=== PATIENT | female | born 1965 | race Caucasian/White ===

== ENCOUNTER 2024-04-07 19:30 | Inpatient (IN) ==
[2024-04-07] MEDS ORDERED: Patient's ALLERGY Info needs ENTERED STA (23:15)
[2024-04-08] MEDS ORDERED: LORazepam 2 MG/1 ML VIAL IV PRN (01:04)
[2024-04-08] MEDS ORDERED: oxyCODONE HCL IR 5 MG TAB (IMMEDIATE RELEASE) PO PRN (01:05)
[2024-04-08] MEDS ORDERED: ACETAMINOPHEN 500 MG TAB PO PRN (01:05)
[2024-04-08] MEDS ORDERED: PROMETHAZINE 6.25 MG/50.25 ML BAG IV PRN (01:05)
--- NOTE | 2024-04-08 02:04 | History & Physical Report ---
Date of Service April 08, 2024 Assessment & Plan (1) Ambulatory dysfunction: Plan: Possibly from peripheral neuropathy from alcohol abuse hx VT COPD, patient with usual SOB symptoms seizure disorder, well-controlled on Keppra after initial event last year Alcoholic hepatitis Thrombocytopenia possibly from liver disease ongoing tobacco abuse OBS Medical telemetry given potential for alcohol withdrawal BRYAN S at risk protocol, DT precautions [facility] [place] consult Re: Worsening bilateral leg weakness PT OT eval Nicotine patch as needed DVT prophylaxis. SCDs Re: Thrombocytopenia Full code Patient's son requesting updates providers. Mr. Messi Huynh, contact #[phone]. ADDENDUM: Unassigned patient insurance later found to be [facility] [employer]. Patient may incur more expense if seen by [facility] providers during confinement as per discussion with case management. Will transfer service to [facility] Hospitalist service. Patient case signed out to Dr. Pineda. History of Present Illness Chief Complaint: Worsening bilateral leg weakness, tremors Primary Care Provider: Deepak Cuenca PA-C History obtained from patient, family, and records. Medical history significant for VT, COPD, seizure disorder, mood disorder, chronic back pain, ongoing tobacco/alcohol abuse. Patient has had bilateral hand tremors and leg weakness for couple of years now. Patient noted worsening symptoms the last 3 weeks. No headache, no chest pain, no unusual back pain, no abdominal pain, no incontinence symptoms. No fever, no chills. Patient falling more than usual at home. Some SOB without new cough symptoms. Outpatient [facility] [place]rology appointment scheduled for next month. Patient had a misunderstanding with [facility] neurologist who will not take her back as per patient account. Patient seen at [facility] ER yesterday. Patient transferred to [facility] as per patient request for neurology services. Medical History as above Surgical History : Foot surgery, knee surgery, wrist surgery, D&C, trigger finger surgery, BTL Family History : DM, seizure disorder, TIA Personal/Social history : 6 cigarettes daily, alcohol binging once a month as per patient, disabled Allergies Allergy/AdvReac Type Severity Reaction Status Date / Time hydromorphone [From Dilaudid] Allergy SHORTNESS Verified 04/08/24 01:59 OF BREATH hydrochlorothiazide AdvReac ACUTE Verified 04/08/24 01:59 RENAL FAILURE lisinopril AdvReac ACUTE Verified 04/08/24 01:59 RENAL FAILURE Home Medications Medication Instructions Recorded Confirmed Type acetaminophen 500 mg tablet 1,000 mg PO BID PRN DIRECTED 04/08/24 04/08/24 History (Tylenol Extra Strength) albuterol sulfate 90 mcg/actuation 1 puff inhalation Q6 PRN Shortness 04/08/24 04/08/24 History aerosol inhaler Of Breath Or Wheezing baclofen 15 mg tablet 15 mg PO UD PRN NON SPECIFIED 04/08/24 04/08/24 History bisoprolol fumarate 5 mg tablet 5 mg PO DAILY 04/08/24 04/08/24 History buspirone 5 mg tablet 5 mg PO BID PRN Anxiety 04/08/24 04/08/24 History cetirizine 10 mg tablet 10 mg PO DAILY 04/08/24 04/08/24 History duloxetine 30 mg capsule,delayed 30 mg PO DAILY 04/08/24 04/08/24 History release (Cymbalta) fluticasone 500 mcg-salmeterol 50 1 inh inhalation BID 04/08/24 04/08/24 History mcg/dose blistr powdr for inhalation (Advair Diskus) fluticasone propionate 50 2 spray intranasal DAILY 04/08/24 04/08/24 History mcg/actuation nasal spray,suspension levetiracetam 500 mg tablet 500 mg PO BID 04/08/24 04/08/24 History (Keppra) meloxicam 15 mg tablet 15 mg PO UD PRN NON SPECIFIED 04/08/24 04/08/24 History multivitamin 1 tab PO DAILY 04/08/24 04/08/24 History omeprazole 20 mg tablet,delayed 20 mg PO DAILY 04/08/24 04/08/24 History release potassium chloride 10 mEq 10 meq PO DAILY 04/08/24 04/08/24 History capsule,extended release trazodone 100 mg tablet 100 mg PO HS 04/08/24 04/08/24 History Past Med/Surg History Problem List (Updated 04/08/24 @ 02:21 by Dilan Sierra MD) Ambulatory dysfunction Social History Smoking Status: Current every day smoker Tobacco Type: Cigarettes Second Hand Exposure: No; Do You Dip or Chew Tobacco: No; Hx Alcohol Use: Yes (drinks 6 shots of vodka/day) Hx Substance Use: No Preferred Language: Senegalese 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 Beliefs That Will Affect Care: None Current Living Situation: Family Current Living Situation Comment: lives with son Other Information That Helps Us Care for You: No Feels Safe at Home: Yes Safety Concerns: Feels Safe At This Time Assistive Devices: Cane, Walker and Wheelchair Review of Systems Review of Systems: As per HPI, all other systems reviewed and negative Physical Exam Physical Exam: GENERAL: Comfortable, pleasant, obese, tremulous, no respiratory distress SKIN: Normal color, warm HEENT: Bespectacled, [place] palpebral conjunctivae, no ptosis, dry buccal mucosa NECK : Supple, no tenderness CHEST : CTA, no tenderness HEART : RRR, no obvious murmurs ABDOMEN: Some distention, nontender EXTREMITIES : No LE swelling/tenderness, no other conspicuous deformities noted NEUROLOGIC : Coherent, no facial asymmetry, tremulous, MMTS BUE 4/5, BLE 3/5, gait and stance not assessed Results & Data Results & Data Vital Signs (Past 12 Hours) Vital Signs Temp Pulse Resp BP Pulse Ox O2 Del Method 36.6 C 96 H 20 130/79 95 Room Air 04/08/24 01:12 04/08/24 01:12 04/08/24 01:12 04/08/24 01:12 04/08/24 01:12 04/08/24 01:[address] [facility] (04/07/24) Hemoglobin 13.7, hematocrit 39.5, WBC 5.77, platelets 116 Serum sodium 134, potassium 3.9, chloride 100, CO2 24, BUN 14, creatinine 0.9, glucose 107, magnesium 1.5, AST 306, ALT 97, alk phos 304, troponin within normal limits MRI brain with and without contrast: No acute or suspicious intracranial abnormality. Ultrasound gallbladder : cholelithiasis, fatty liver
[2024-04-08 02:36] LABS: Hematocrit (blood only) 36.6 % (37.0-47.0); Hemoglobin 12.4 g/dl (12.0-16.0); Mean Corpuscular Hemoglobin 37.3 pg (25.0-34.0); Mean Corpuscular Hgb Conc 33.9 g/dL (32.0-36.0); Mean Corpuscular Volume 110.2 fL (80.0-100.0); Mean Platelet Volume 11.1 fL (9.4-12.4); Platelet Count 93 K/uL (130-400); RDW Coefficient of Variation 15.3 % (11.5-14.5); RDW Standard Deviation 61.6 fL (36.4-46.3); Red Blood Count 3.32 M/uL (4.20-5.40); White Blood Count 5.57 K/ul (4.8-10.8)
[2024-04-08 02:42] LABS: Albumin Globulin Ratio 1.2 (0.9-2); Albumin Level 3.1 gm/dl (3.4-5.0); BUN Creatinine Ratio 18.5 (10-20); Calcium 8.9 mg/dl (8.6-10.3); Creatinine Clr Calc Pharmacy 76.5 ml/min; Globulin 2.6 gm/dl (2.5-4.0); Magnesium 1.9 mg/dl (1.7-2.4); Total Protein 5.7 gm/dl (6.0-8.3)
[2024-04-08 02:45] LABS: Basophils # (auto) 0.03 K/uL (0.00-0.20); Basophils % (auto) 0.5 %; Eosinophils # (auto) 0.04 K/uL (0.00-0.50); Eosinophils % (auto) 0.7 %; Immature Granulocytes # (auto) 0.09 K/uL (0.01-0.20); Immature Granulocytes % (auto) 1.6 %; Lymphocytes # (auto) 0.66 K/uL (1.20-3.40); Lymphocytes % (auto) 11.8 %; Macrocytosis Present; Monocytes # (auto) 0.79 K/uL (0.11-0.59); Monocytes % (auto) 14.2 %; Neutrophils # (auto) 3.96 K/uL (1.40-6.50); Neutrophils % (auto) 71.2 %
[2024-04-08 02:51] LABS: INR 1.1 (0.9-1.1); Prothrombin Time 11.7 Seconds (9.0-12.0)
[2024-04-08 02:56] LABS: Thyroid Stimulating Hormone 9.586 uIu/ml (0.300-4.500)
[2024-04-08] MEDS: NICOTINE 7 MG/24 HR TDSY TD SCH (03:20)
[2024-04-08] MEDS: SODIUM CHLORIDE 0.9% 1,000 ML IV ONE ×3 (03:24→17:55)
[2024-04-08 03:32] LABS: T4 Free Thyroxine 1.42 ng/dl (0.61-1.60)
[2024-04-08] MEDS: Patient's HEIGHT &/or WEIGHT Needed STA (03:33)
[2024-04-08] MEDS: LEVOTHYROXINE SODIUM 25 MCG TABLET PO SCH (05:50)
--- NOTE | 2024-04-08 07:56 | Neurology Consultation ---
Date of Consultation April 08, 2024 Assessment & Plan (1) Lower extremity weakness: History of Present Illness Attending Physician: Naveed Craig MD History of Present Illness today: pt this morning NAD. pt states she feels weak in her legs more proximally for now few months and has done physical therapy for past 6 months. pt [facility] neurology and has had EMG of both upper and lower limbs (no reports available in chart) and told it was unremarkable. pt feels mainly weak when trying to get up from chair. pt denies muscle pain or urine color change. pt does have hx of chronic alcohol abuse and binge drinking. chart reviewed. [facility], reported to be normal. admission HPI : Worsening bilateral leg weakness, tremors Primary Care Provider: Deepak Cuenca PA-C History obtained from patient, family, and records. Medical history significant for VT, COPD, seizure disorder, mood disorder, chronic back pain, ongoing tobacco/alcohol abuse. Patient has had bilateral hand tremors and leg weakness for couple of years now. Patient noted worsening symptoms the last 3 weeks. No headache, no chest pain, no unusual back pain, no abdominal pain, no incontinence symptoms. No fever, no chills. Patient falling more than usual at home. Some SOB without new cough symptoms. Outpatient [facility] Neurology appointment scheduled for next month. Patient had a misunderstanding with [facility] neurologist who will not take her back as per patient account. Patient seen at [facility] ER yesterday. Patient transferred to [facility] as per patient request for neurology services. Medical History as above Surgical History : Foot surgery, knee surgery, wrist surgery, D&C, trigger finger surgery, BTL Family History : DM, seizure disorder, TIA Personal/Social history : 6 cigarettes daily, alcohol binging once a month as per patient, disabled Allergies Allergy/AdvReac Type Severity Reaction Status Date / Time hydromorphone [From Dilaudid] Allergy SHORTNESS Verified 04/08/24 01:59 OF BREATH hydrochlorothiazide AdvReac ACUTE Verified 04/08/24 01:59 RENAL FAILURE lisinopril AdvReac ACUTE Verified 04/08/24 01:59 RENAL FAILURE Home Medications Medication Instructions Recorded Confirmed Type acetaminophen 500 mg tablet 1,000 mg PO BID PRN DIRECTED 04/08/24 04/08/24 History (Tylenol Extra Strength) albuterol sulfate 90 mcg/actuation 1 puff inhalation Q6 PRN Shortness 04/08/24 04/08/24 History aerosol inhaler Of Breath Or Wheezing baclofen 15 mg tablet 15 mg PO UD PRN NON SPECIFIED 04/08/24 04/08/24 History bisoprolol fumarate 5 mg tablet 5 mg PO DAILY 04/08/24 04/08/24 History buspirone 5 mg tablet 5 mg PO BID PRN Anxiety 04/08/24 04/08/24 History cetirizine 10 mg tablet 10 mg PO DAILY 04/08/24 04/08/24 History duloxetine 30 mg capsule,delayed 30 mg PO DAILY 04/08/24 04/08/24 History release (Cymbalta) fluticasone 500 mcg-salmeterol 50 1 inh inhalation BID 04/08/24 04/08/24 History mcg/dose blistr powdr for inhalation (Advair Diskus) fluticasone propionate 50 2 spray intranasal DAILY 04/08/24 04/08/24 History mcg/actuation nasal spray,suspension levetiracetam 500 mg tablet 500 mg PO BID 04/08/24 04/08/24 History (Keppra) meloxicam 15 mg tablet 15 mg PO UD PRN NON SPECIFIED 04/08/24 04/08/24 History multivitamin 1 tab PO DAILY 04/08/24 04/08/24 History omeprazole 20 mg tablet,delayed 20 mg PO DAILY 04/08/24 04/08/24 History release potassium chloride 10 mEq 10 meq PO DAILY 04/08/24 04/08/24 History capsule,extended release trazodone 100 mg tablet 100 mg PO HS 04/08/24 04/08/24 History Patient History Social History Smoking Status: Current every day smoker Tobacco Type: Cigarettes Second Hand Exposure: No; Do You Dip or Chew Tobacco: No; Hx Alcohol Use: Yes (drinks 6 shots of vodka/day) Hx Substance Use: No Preferred Language: Armenian 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 Beliefs That Will Affect Care: None Current Living Situation: Family Current Living Situation Comment: lives with son Other Information That Helps Us Care for You: No Feels Safe at Home: Yes Safety Concerns: Feels Safe At This Time Assistive Devices: Cane, Walker and Wheelchair Exam (Neuro) Physical Exam: HEENT: normocephalic grossly Neuro: Mental: AOx4, fluent speech, normal comprehension, no apraxia, no L/R confusion, no neglect CN: PERRL, Full EOM, symmetric face, midline T/U/P, grossly full ROM neck Motor: occasional b/l hand tremors with posture and at times at rest, normal tone, 5/5 t/o bilaterally upper and 5-/5 b/l lower ext hip flexion and knee extension, 5/5 distal dorsiflexion/plantar flexion b/l. Sens: intact to touch b/l grossly Coord: intact FNT b/l DTR: 2+ sym b/l Gait:deferred. Impression: 59 yo female with chronic subjective b/l lower ext with subtle proximal weakness in setting of chronic alcohol abuse. 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 Other vitamin/nutritional deficiency may also contribute. Recommendations: pt has apparently pending appt with neurology as outpt next month, keep the appt and can do the further work up as outpt. try to get records from [facility] and [facility] for prior EMG and other work up labs (as outpt). physical therapy consult for strength training and gait evaluation. need to stop drinking. consider checking thiamine, vitamin B6, zinc and iron levels (again, this can be done as outpt work up). there is no acute work up needed as inpt from neurology stand point. call again if new question. Follow up as above. Chart reviewed I have spent more than 50% educating patient about potential diagnosis and neurological evaluation and coordinating care with patient's treatment team. Total time spent (including chart review and coordination of care): 60 min (this includes chart review). Results & Data Vital Signs (Past 12 Hours) Vital Signs Temp Pulse Resp BP BP Pulse Ox O2 Del Method 04/08/24 07:37 36.8 C 86 18 95/67 L 93 Room Air 04/08/24 04:21 78 92/57 L 95 Room Air 04/08/24 04:17 36.7 C 81 16 91/60 L 93 Room Air 11/01/24 01:58 Room Air 04/08/24 01:12 36.6 C 96 H 20 130/79 95 Room Air PG Care Time/CCT Total # of Minutes Spent Total Time Spent with Patient: Total time spent is greater than 50% in coordination of care (as documented) at patient's floor/unit and/or counseling patient: Coding Level of Care Code 71600 IN/OBS CONSULT LVL 4,60M Diagnoses Weakness of both lower extremities R29.898 Laterality: bilateral (1) Lower extremity weakness Laterality: bilateral Qualified Code(s): R29.898 - Other symptoms and signs involving the musculoskeletal system
--- NOTE | 2024-04-08 08:46 | XRay Report ---
XR chest 1V portable HISTORY: 59 years-old Female sob acute shortness of breath COMPARISON: None TECHNIQUE: AP view of the chest FINDINGS: Cardiomediastinal and hilar silhouettes are within normal limits. No pneumothorax or pleural effusion . Ill-defined subsegmental lateral left lung base opacities. Bones appear grossly intact. IMPRESSION: Subsegmental lateral left lung base opacities may be secondary to atelectasis versus deve loping pneumonia. ACT 112: Negative or not required by law. The above report was generated using voice recognition software. It may contain grammatical, syntax o r spelling errors. Electronically signed by: Deo Godoy M.D. 04/08/2024 8:08 AM
[2024-04-08] MEDS: CETIRIZINE HCL 10 MG TABLET PO SCH (08:51)
[2024-04-08] MEDS: BISOPROLOL FUMARATE 5 MG TAB PO SCH (08:51)
[2024-04-08] MEDS: THIAMINE HCL 100 MG TAB PO SCH (08:53)
[2024-04-08] MEDS: FOLIC ACID 1 MG TAB PO SCH (08:53)
[2024-04-08] MEDS: PANTOprazole 40 MG TAB PO SCH (08:53)
[2024-04-08] MEDS: MULTIVITAMIN TAB PO SCH (08:53)
[2024-04-08] MEDS: FLUTICASONE PROPIONATE NA SPR 16 GM BTL SCH (08:53)
[2024-04-08] MEDS: FLUTICASONE/VILANTEROL 200/25MCG 14 PUFFS/INHALER INH SCH (08:53)
[2024-04-08] MEDS: DULoxetine HCL 30 MG CAP PO SCH (08:53)
[2024-04-08] MEDS: SODIUM CHLORIDE 0.9% 1,000 ML IV SCH (08:54)
[2024-04-08] MEDS ORDERED: MULTIVITAMIN TAB PO SCH (09:00)
[2024-04-08] MEDS: levETIRAcetam 500 MG TAB PO SCH (10:18)
--- NOTE | 2024-04-08 14:44 | Hospitalist Progress Note ---
Date of Service April 08, 2024 Assessment & Plan (1) Ambulatory dysfunction: (2) Hyponatremia: (3) Thrombocytopenia: (4) Transaminitis: (5) Alcoholic hepatitis: (6) COPD (chronic obstructive pulmonary disease): (7) Seizure disorder: Plan Ambulatory dysfunction - BL LE weakness with tremors throughout body worst in hands - Neurology consulted: No concern for infarct, likely alcohol related with essential tremor - OT/PT consulted Hyponatremia - Na: 132 - Urine sodium, Urine osmolality and serum osmolality ordered - NS x2 L given, will continue to supplement - CMP QAM Thrombocytopenia -Platelet count: 93 -CBC/CMP QAM Transaminitis/Alcoholic hepatitis - ALT: 64, AST: 184 (04/08) - Trend LFTS/Bilirubin - AWSS protocol - Liver u/s ordered - CBC/CMP QAM COPD - No respiratory symptoms - Continue home Advair Diskus and albuterol PRN Seizure disorder - Continue Keppra 500 mg BID Admission and Anticipated Discharge Date Admission Date: April 08, 2024 Supervising Physician Co-Signing Physician Notes Attending attestation Pt seen and examined in concert with Dr. Trejo. In agreement with the documented findings as noted in the resident documentation with any exceptions or additions as noted here. Reported one episode of mild lightheadedness while walking from the bathroom this AM but has not repeated since with subsequent short trips. Son in room with patient (Al). Clarification of course of illness - progressive ambulatory/functional decline for ~2 years following COVID pandemic and recurrent infections (last ~1 yr ago), though more so in the last 2-4 weeks without apparent triggering etiology/illness. Son reports he had to help patient off toilet, off couch (stuck for 3 hrs) and similar, which he has never had to do. On review of alcohol use history, son and patient corroborated that the patient consumes approximately 2 x 1.7L bottles of vodka per week and has, steadily, for some time. She has not had a recent day without drinking. She has not tried to cut back. She is interested in rehabilitation services but not committed to them. On examination, S1/S2 nl RRR no MCG. CTAB. Abd NT/ND BS+ve. Mild bilateral resting tremor of the hands. Ambulatory dysfunction/deconditioning - PT/OT consult, neurology evaluation and s/o - PT/OT recommend acute rehab services which patient is agreeable to today. Neurology does not find ulterior underlying cause of weakness/tremor. Alcohol use disorder with concern for alcohol withdrawal - start AWSS protocol with lorazepam for symtomatic management and consider additional interventions if required. Case management for cessation resources. Transaminitis with hyperbilirubinemia in the setting of AUD - RUQ US, trend AST, ALT, bilirubin daily Hyponatremia with hypoproteinemia - likely 2/2 AUD - trend sodium daily and monitor for changes. Encourage PO intake. Borderline low BP - add hold parameters for bisoprolol, continue IV fluids and monitor BP. Else see resident documentation as noted. Subjective Bandar Huynh is a 59 y/o F with a past medical history of COPD, Seizure disorder on Keppra, alcoholic hepatitis, and thrombocytopenia admitted to [facility] due to bilateral LE weakness and ongoing tremors. Patient notes that she has had these symptoms for the past 3 years, but in the past 3 weeks, symptoms have worsened. Patient does endorse drinking 1.75 L of vodka every 3-4 days. Today patient denies chest pain, palpitations, SOB, cough, wheeze, nausea, vomiting, abdominal pain, fevers or chills. Patient does endorse ongoing dizziness, tremors and bilateral LE weakness worsened when changing position from supine to seated or when standing up. Physical Exam Physical Exam: General: patient resting comfortably, NAD, non-toxic in appearance, answers questions appropriately. Skin: warm, dry, intact HEENT: NC/AT, anicteric sclera, conjunctiva without injection, moist mucus membranes. Heart: +S1/S2, regular, no m/r/g Lungs: equal air entry bilaterally, no rales/rhonchi/wheezes Abd: +BS, soft, NT/ND Ext: warm, no clubbing/cyanosis or edema, Jos's neg. Neuro: nonfocal, speech intact, no facial droop, moving all extremities. Results & Data Results & Data Vital Signs (Past 12 Hours) Vital Signs Temp Pulse Pulse Resp BP BP Pulse Ox 04/08/24 11:25 36.5 C 79 18 104/73 93 04/08/24 08:00 92 H 04/08/24 08:00 04/08/24 07:37 36.8 C 86 18 95/67 L 93 04/08/24 04:21 78 92/57 L 95 04/08/24 04:17 36.7 C 81 16 91/60 L 93 O2 Del Method 04/08/24 11:25 Room Air 04/08/24 08:00 04/08/24 08:00 Room Air 04/08/24 07:37 Room Air 04/08/24 04:21 Room Air 04/08/24 04:17 Room Air
[2024-04-08] MEDS ORDERED: Ativan IV Alcohol Withdrawal--Active Protocol IV PRN (15:18)
[2024-04-08] MEDS ORDERED: LORazepam 2 MG/1 ML VIAL--Active Protocol IV PRN ×3 (16:15)
[2024-04-08] MEDS ORDERED: MICONAZOLE NITRATE POWDER 85 GM EXT PRN (18:04)
[2024-04-08] MEDS: traZODone HCL 100 MG TAB PO SCH (22:01)
[2024-04-09 06:03] LABS: Hemoglobin 11.7 g/dl (12.0-16.0); Mean Corpuscular Hemoglobin 38.1 pg (25.0-34.0); Mean Corpuscular Hgb Conc 34.4 g/dL (32.0-36.0); Mean Corpuscular Volume 110.7 fL (80.0-100.0); Mean Platelet Volume 10.7 fL (9.4-12.4); Platelet Count 99 K/uL (130-400); RDW Coefficient of Variation 15.5 % (11.5-14.5); RDW Standard Deviation 62.4 fL (36.4-46.3); Red Blood Count 3.07 M/uL (4.20-5.40); White Blood Count 4.98 K/ul (4.8-10.8)
[2024-04-09 06:27] LABS: Albumin Globulin Ratio 1.1 (0.9-2); Albumin Level 2.8 gm/dl (3.4-5.0); BUN Creatinine Ratio 16.4 (10-20); Bilirubin,Total 1.6 mg/dl (0.2-1.0); Calcium 8.2 mg/dl (8.6-10.3); Creatinine Clr Calc Pharmacy 115.5 ml/min; Globulin 2.5 gm/dl (2.5-4.0); Potassium 3.7 mmol/L (3.5-5.1); Total Protein 5.3 gm/dl (6.0-8.3)
--- NOTE | 2024-04-09 15:34 | Hospitalist Progress Note ---
Date of Service April 09, 2024 Assessment & Plan (1) Ambulatory dysfunction: (2) Hyponatremia: (3) Thrombocytopenia: (4) Transaminitis: (5) Alcoholic hepatitis: (6) COPD (chronic obstructive pulmonary disease): (7) Seizure disorder: Plan Ambulatory dysfunction - BL LE weakness with tremors throughout body worst in hands - Neurology consulted: No concern for infarct, likely alcohol related with essential tremor - OT/PT consulted - inpatient rehab recommended, waiting for placement Hyponatremia - Na: 132 - Urine sodium, Urine osmolality and serum osmolality ordered - NS x2 L given, will continue to supplement - CMP QAM Thrombocytopenia -Platelet count: 93 -CBC/CMP QAM Transaminitis/Alcoholic hepatitis - ALT: 64, AST: 184 (04/08) - Trend LFTS/Bilirubin - [facility] protocol - Liver u/s ordered - CBC/CMP QAM COPD - No respiratory symptoms - Continue home Advair Diskus and albuterol PRN Seizure disorder - Continue Keppra 500 mg BID Admission and Anticipated Discharge Date Admission Date: April 08, 2024 Supervising Physician Co-Signing Physician Notes Attending attestation Pt seen and examined in concert with Dr. Trejo. In agreement with the documented findings as noted in the resident documentation with any exceptions or additions as noted here. Resting comfortably in bed without recurrence of lightheadedness with mild activity in room. Son at bedside. Both are understanding that inpatient rehab services are recommended and the patient is hesitantly accepting. On examination, S1/S2 nl RRR no MCG. CTAB. Abd NT/ND BS+ve. Mild bilateral resting tremor of the hands. Ambulatory dysfunction/deconditioning - PT/OT consult, neurology evaluation and s/o - PT/OT recommend acute rehab services. Neurology does not find ulterior underlying cause of weakness/tremor. CM aware. Alcohol use disorder with concern for alcohol withdrawal - continue AWSS protocol with lorazepam for symptomatic management, though no needs currently. Transaminitis with hyperbilirubinemia in the setting of AUD - RUQ US from 04/07 with hepatosteatosis, trend AST, ALT, bilirubin daily Hyponatremia - resolved Borderline low BP - encourage oral hydration. Monitor BP. Consider hold bisoprolol if decreased BP. Else see resident documentation as noted. Subjective Patient resting comfortably in bedside accompanied by son/caregiver who was able to stay the night. Patient endorses that her weakness and tremors have improved, and she is no longer dizzy when ambulating. Inpatient rehabilitation was discussed with patient and she is amenable to starting once a bed is available. No fevers, chills, abdominal pain, nausea, vomiting, chest pain, palpitations, pressures, or incontinence. Physical Exam Physical Exam: General: patient resting comfortably, NAD, non-toxic in appearance, answers questions appropriately. Skin: warm, dry, intact HEENT: NC/AT, anicteric sclera, conjunctiva without injection, moist mucus membranes. Heart: +S1/S2, regular, no m/r/g Lungs: equal air entry bilaterally, no rales/rhonchi/wheezes Abd: +BS, soft, NT/ND Ext: warm, no clubbing/cyanosis or edema, Jos's neg. Neuro: nonfocal, speech intact, no facial droop, moving all extremities. Results & Data Results & Data Vital Signs (Past 12 Hours) Vital Signs Temp Pulse Pulse Resp BP Pulse Ox O2 Del Method 04/09/24 15:14 36.7 C 69 20 101/59 L 91 Room Air 04/09/24 14:14 64 04/09/24 11:44 36.6 C 79 20 105/65 94 Room Air 04/09/24 07:59 36.7 C 80 20 107/69 93 Room Air 04/09/24 07:35 Room Air 04/09/24 06:51 70
[2024-04-10] MEDS: busPIRone 5 MG TAB PO PRN (08:44)
--- NOTE | 2024-04-10 11:16 | Hospitalist Progress Note ---
Date of Service April 10, 2024 Assessment & Plan (1) Ambulatory dysfunction: (2) Hyponatremia: (3) Thrombocytopenia: (4) Transaminitis: (5) Alcoholic hepatitis: (6) COPD (chronic obstructive pulmonary disease): (7) Seizure disorder: Plan Ambulatory dysfunction - BL LE weakness with tremors throughout body worst in hands - Neurology consulted: No concern for infarct, likely alcohol related with essential tremor - OT/PT consulted - inpatient rehab recommended, waiting for placement Hyponatremia - Na: 132 - Urine sodium, Urine osmolality and serum osmolality ordered - NS x2 L given, will continue to supplement - CMP QAM Thrombocytopenia -Platelet count: 93 -CBC/CMP QAM Transaminitis/Alcoholic hepatitis - ALT: 64, AST: 184 (04/08) - Trend LFTS/Bilirubin - AWSS protocol - Liver u/s ordered - CBC/CMP QAM COPD - No respiratory symptoms - Continue home Advair Diskus and albuterol PRN - added incentive spirometer Seizure disorder - Continue Keppra 500 mg BID Admission and Anticipated Discharge Date Admission Date: April 08, 2024 Supervising Physician Co-Signing Physician Notes Attending attestation Pt seen and examined in concert with Dr. Trejo. In agreement with the documented findings as noted in the resident documentation with any exceptions or additions as noted here. Resting comfortably in bed without recurrence of lightheadedness with mild activity in room. Son at bedside. Ambulating to restroom without issue. Both parties are still open to inpatient PT services. On examination, S1/S2 nl RRR no MCG. CTAB. Abd NT/ND BS+ve. Mild bilateral resting tremor of the hands. Ambulatory dysfunction/deconditioning - PT/OT consult, neurology evaluation and s/o - PT/OT recommend acute rehab services. Neurology does not find ulterior underlying cause of weakness/tremor. CM aware. Alcohol use disorder with concern for alcohol withdrawal - continue AWSS protocol with lorazepam for symptomatic management, though no needs currently. Transaminitis with hyperbilirubinemia in the setting of AUD - RUQ US from 04/07 with hepatosteatosis Hyponatremia - resolved Borderline low BP - encourage oral hydration. Monitor BP. Consider hold bisoprolol if decreased BP. Else see resident documentation as noted. Subjective Patient resting comfortably in bedside accompanied by son/caregiver who was able to stay the night. Patient endorses that her weakness and tremors have improved, and she is no longer dizzy when ambulating. Inpatient rehabilitation was discussed with patient and she is amenable to starting once a bed is available. No fevers, chills, abdominal pain, nausea, vomiting, chest pain, palpitations, pressures, or incontinence. Physical Exam Physical Exam: General: patient resting comfortably, NAD, non-toxic in appearance, answers questions appropriately. Skin: warm, dry, intact HEENT: NC/AT, anicteric sclera, conjunctiva without injection, moist mucus memb ranes. Heart: +S1/S2, regular, no m/r/g Lungs: equal air entry bilaterally, no rales/rhonchi/wheezes Abd: +BS, soft, NT/ND Ext: warm, no clubbing/cyanosis or edema, Jos's neg. Neuro: nonfocal, speech intact, no facial droop, moving all extremities. Results & Data Results & Data Vital Signs (Past 12 Hours) Vital Signs Temp Pulse Pulse Resp BP Pulse Ox O2 Del Method 04/10/24 10:26 Room Air 04/10/24 07:48 36.4 C L 87 20 148/74 H 93 Room Air 04/10/24 07:10 60 04/10/24 03:17 36.5 C 66 16 112/66 94 Room Air 04/10/24 01:59 EST 60 04/10/24 01:52 EDT Room Air
[2024-04-10] MEDS ORDERED: POLYETHYLENE (MIRALAX) 17 GM PACK PO PRN (14:24)
[2024-04-10] MEDS ORDERED: MELATONIN 3 MG TAB PO PRN (14:24)
[2024-04-10] MEDS ORDERED: MAGNESIUM HYDROXIDE SUSP 30 ML UDC PO PRN (14:24)
[2024-04-10] MEDS ORDERED: ACETAMINOPHEN 325 MG TAB PO PRN (14:24)
[2024-04-10] MEDS ORDERED: ALUMINUM/MAGNESIUM SUSP 30 ML UDC PO PRN (14:24)
[2024-04-10] MEDS ORDERED: ONDANSETRON INJ 2 MG/ML 2 ML VIAL IV PRN (14:24)
[2024-04-11 07:53] VITALS: BP 125/78; PULSE 59; RESP 18; TEMP 97.7; O2SAT 96
[2024-04-11 08:45] LABS: Hematocrit (blood only) 36.3 % (37.0-47.0); Hemoglobin 12.5 g/dl (12.0-16.0); Mean Corpuscular Hemoglobin 37.8 pg (25.0-34.0); Mean Corpuscular Hgb Conc 34.4 g/dL (32.0-36.0); Mean Corpuscular Volume 109.7 fL (80.0-100.0); Mean Platelet Volume 10.7 fL (9.4-12.4); Platelet Count 155 K/uL (130-400); RDW Coefficient of Variation 15.9 % (11.5-14.5); RDW Standard Deviation 65.1 fL (36.4-46.3); Red Blood Count 3.31 M/uL (4.20-5.40); White Blood Count 5.31 K/ul (4.8-10.8)
[2024-04-11 09:01] LABS: Albumin Globulin Ratio 1.2 (0.9-2); Albumin Level 2.9 gm/dl (3.4-5.0); BUN Creatinine Ratio 17.9 (10-20); Bilirubin,Total 1.8 mg/dl (0.2-1.0); Calcium 8.6 mg/dl (8.6-10.3); Globulin 2.5 gm/dl (2.5-4.0); Potassium 3.8 mmol/L (3.5-5.1); Total Protein 5.4 gm/dl (6.0-8.3)
[2024-04-11] MEDS: CYANOCOBALAMIN (B-12) 500 MCG TABLET PO SCH (09:57)
--- NOTE | 2024-04-11 13:20 | Discharge Summary ---
Date of Service April 11, 2024 Admission HPI Per Admitting Provider History obtained from patient, family, and records. Medical history significant for VT, COPD, seizure disorder, mood disorder, chronic back pain, ongoing tobacco/alcohol abuse. Patient has had bilateral hand tremors and leg weakness for couple of years now. Patient noted worsening symptoms the last 3 weeks. No headache, no chest pain, no unusual back pain, no abdominal pain, no incontinence symptoms. No fever, no chills. Patient falling more than usual at home. Some SOB without new cough symptoms. [place] [facility] [place] for next month. Patient had a misunderstanding with [facility] neurologist who will not take her back as per patient account. Patient seen at [facility] yesterday. Patient transferred to [facility] as per patient request for neurology services. Medical History as above Surgical History : Foot surgery, knee surgery, wrist surgery, D&C, trigger finger surgery, BTL Family History : DM, seizure disorder, TIA Personal/Social history : 6 cigarettes daily, alcohol binging once a month as per patient, disabled Principal Diagnosis Ambulatory dysfunction and ETOH abuse Discharge Exam General: patient resting comfortably, NAD, non-toxic in appearance, answers questions appropriately. Skin: warm, dry, intact HEENT: NC/AT, anicteric sclera, conjunctiva without injection, moist mucus membranes. Heart: +S1/S2, regular, no m/r/g Lungs: equal air entry bilaterally, no rales/rhonchi/wheezes Abd: +BS, soft, NT/ND Ext: warm, no clubbing/cyanosis or edema, Jos's neg. Neuro: nonfocal, speech intact, no facial droop, moving all extremities. Discharge Data Allergies Allergy/AdvReac Type Severity Reaction Status Date / Time hydromorphone [From Dilaudid] Allergy SHORTNESS Verified 04/08/24 01:59 OF BREATH hydrochlorothiazide AdvReac ACUTE Verified 04/08/24 01:59 RENAL FAILURE lisinopril AdvReac ACUTE Verified 04/08/24 01:59 RENAL FAILURE Consultations 04/08/24 01:51 Consult Neurology Routine 04/08/24 02:03 HIM [Consult Health Information Management] Routine Ordered Studies Laboratory Results WBC 5.31 K/ul (4.8-10.8) 04/11/24 08:26 RBC 3.31 M/uL (4.20-5.40) L 04/11/24 08:26 Hgb 12.5 g/dl (12.0-16.0) 04/11/24 08:26 Hct 36.3 % (37.0-47.0) L 04/11/24 08:26 MCV 109.7 fL (80.0-100.0) H 04/11/24 08:26 MCH 37.8 pg (25.0-34.0) H 04/11/24 08: MCHC 34.4 g/dL (32.0-36.0) 04/11/24 08: RDW Std Deviation 65.1 fL (36.4-46.3) H 04/11/24 08: RDW Coeff of Karen 15.9 % (11.5-14.5) H 04/11/24 08: Plt Count 155 K/uL (130-400) 04/11/24 08: MPV 10.7 fL (9.4-12.4) 04/11/24 08:26 Immature Gran % (Auto) 1.6 % 04/08/24 02:01 Neut % (Auto) 71.2 % 04/08/24 02:01 Lymph % (Auto) 11.8 % 04/08/24 02:01 [place] % (Auto) 14.2 % 04/08/24 02:01 Eos % (Auto) 0.7 % 04/08/24 02:01 Baso % (Auto) 0.5 % 04/08/24 02:01 Neut # (Auto) 3.96 K/uL (1.40-6.50) 04/08/24 02:01 Lymph # (Auto) 0.66 K/uL (1.20-3.40) L 04/08/24 02:01 [place] # (Auto) 0.79 K/uL (0.11-0.59) H 04/08/24 02:01 Eos # (Auto) 0.04 K/uL (0.00-0.50) 04/08/24 02:01 Baso # (Auto) 0.03 K/uL (0.00-0.20) 04/08/24 02:01 Immature Gran # (Auto) 0.09 K/uL (0.01-0.20) 04/08/24 02:01 Macrocytosis Present 04/08/24 02:01 PT 11.7 Seconds (9.0-12.0) 04/08/24 02:01 INR 1.1 (0.9-1.1) 04/08/24 02:01 Sodium 140 mmol/L (136-145) 04/11/24 08:26 Potassium 3.8 mmol/L (3.5-5.1) 04/11/24 08:26 Chloride 108 mmol/L (98-107) H 04/11/24 08:26 Carbon Dioxide 24 mmol/L (21-32) 04/11/24 08:26 Anion Gap 8 (3-11) 04/11/24 08:26 BUN 10 mg/dl (6-23) 04/11/24 08:26 Creatinine 0.56 mg/dl (0.6-1.2) L 04/11/24 08:26 Est Cr Clr Drug Dosing 111.0 ml/min 04/11/24 08:26 eGFR 105.07 04/11/24 08:26 BUN/Creatinine Ratio 17.9 (10-20) 04/11/24 08:26 Glucose 88 mg/dl (70-99(Fasting)) 04/11/24 08:26 Osmolality 274 mOsm/kg (280-300) L 04/08/24 17:02 Calcium 8.6 mg/dl (8.6-10.3) 04/11/24 08:26 Magnesium 1.9 mg/dl (1.7-2.4) 04/08/24 02:01 Total Bilirubin 1.8 mg/dl (0.2-1.0) H 04/11/24 08:26 AST 127 U/L (13-39) H 04/11/24 08:26 ALT 55 U/L (7-52) H 04/11/24 08:26 Alkaline Phosphatase 210 U/L (34-104) H 04/11/24 08:26 Total Protein 5.4 gm/dl (6.0-8.3) L 04/11/24 08:26 Albumin 2.9 gm/dl (3.4-5.0) L 04/11/24 08:26 Globulin 2.5 gm/dl (2.5-4.0) 04/11/24 08:26 Albumin/Globulin Ratio 1.2 (0.9-2) 04/11/24 08:26 Vitamin B12 326 pg/ml (180-914) 04/08/24 02:01 TSH 9.586 uIu/ml (0.300-4.500) H 04/08/24 02:01 Free T4 1.42 ng/dl (0.61-1.60) 04/08/24 02:01 Urine Osmolality 482 mOsm/kg (500-800) L 04/08/24 20:38 Ur Random Sodium 73 mmol/L 04/08/24 20:38 Impressions Chest X-Ray 04/08/24 01:51 XR chest 1V portable HISTORY: 59 years-old Female sob acute shortness of breath COMPARISON: None TECHNIQUE: AP view of the chest FINDINGS: Cardiomediastinal and hilar silhouettes are within normal limits. No pneumothorax or pleural effusion. Ill-defined subsegmental lateral left lung base opacities. Bones appear grossly intact. IMPRESSION: Subsegmental lateral left lung base opacities may be secondary to atelectasis versus developing pneumonia. ACT 112: Negative or not required by law. The above report was generated using voice recognition software. It may contain grammatical, syntax or spelling errors. Electronically signed by: Deo Godoy M.D. 04/08/2024 8:08 AM Hospital Course (1) Ambulatory dysfunction: (2) Hyponatremia: (3) Thrombocytopenia: (4) Transaminitis: (5) Alcoholic hepatitis: (6) COPD (chronic obstructive pulmonary disease): (7) Seizure disorder: Plan Ambulatory dysfunction - BL LE weakness with tremors throughout body worst in hands - Neurology consulted: No concern for infarct, likely alcohol related with essential tremor - OT/PT consulted - inpatient rehab recommended, waiting for placement Hyponatremia - Na: 132 - Urine sodium, Urine osmolality and serum osmolality ordered - NS x2 L given, will continue to supplement - CMP QAM Thrombocytopenia -Platelet count initially low, has corrected Transaminitis/Alcoholic hepatitis - ALT: 64, AST: 184 (04/08) - Trend LFTS/Bilirubin - AWSS protocol - LFTs normalized COPD - No respiratory symptoms - Continue home Advair Diskus and albuterol PRN - added incentive spirometer Seizure disorder - Continue Keppra 500 mg BID Total Time Total Time Spent Total Time Spent (In Minutes): See attending attestation Discharge Plan Discharge Items Patient Disposition: Home - Home Health Services Reason For Visit: AMB DYSFUNCTION, ETOH ABUSE Discharge Diagnosis: Ambulatory dysfunction, ETOH abuse Activity: Per Instructions section Non-emergency contact: Primary Care Provider Call non-emergency contact if: your symptoms worsen Follow-up/Referrals: Deepak Cuenca PA-C [Primary Care Provider] - Diet: Regular Addtl Attending Provider Instructions: You were admitted to the hospital for ambulatory dysfunction and ETOH abuse after presenting with bilateral hand tremors, dizziness, and loss of balance. You endorsed that these symptoms have been occurring for around 3 years, but noticed that symptoms have worsened for the past 3 weeks. You were treated with AWSS protocol and we closely monitored your electrolytes, vitals, and general mobility over your stay. At this time your symptoms have greatly decreased, however you still have some persistent tremors and weakness when ambulating. During your hospital visit you were consulted by OT/PT and were recommended rehabilitation and home health with PT services to improve your muscle strength. The importance of abstaining from alcohol was discussed with you, and you conveyed understanding of how alcohol is negatively effecting your health. It will be important as you are building strength through these PT services to also abstain from alcohol to improve your recovery in the short term and also benefit your brain, other organs, and general health in the manager long term care. Please continue to make efforts to work with therapy and your son to build better habits to support your fci recovery. A discharge summary will be sent to your primary care physician to ensure continuity of care. Please bring this discharge summary with you to your next office appointment so that your provider can review it at that time. Follow-up appointments: Make a follow-up appointment with your PCP within the next week. It is very important that you follow up with them shortly after discharge from the hospital. Medications: Your medication list has been reviewed and reconciled upon discharge to ensure accuracy and continuity of care. An updated list of all your medications is included with your hospital discharge paperwork. Please review this list closely, and make note of any changes. We sent a new supplement called B12 to your pharmacy. Take Vitamin B12 ([_]mg) [one tablet] [daily] [for _ days]. If you have any issues filling these prescriptions, please call [phone] and ask to leave a message for Dr. Everette Trejo. Take your medications as instructed; do not skip a dose of your medicines. Make sure all of your doctors know every medicine you are taking (including [id number] medicines, vitamins, and supplements). Call your primary care provider before taking any new medicines (including [id number] medicines, vitamins, and supplements), because some of these may interact with your current medications, or may make your symptoms worse. Tell your primary care provider if you cannot afford your medications. CONTACT YOUR PRIMARY CARE PROVIDER if you experience any of the following: Difficulty following your treatment plan, or difficulty taking medications CALL 911 OR GO TO THE EMERGENCY DEPARTMENT if you experience any of the following: Sudden, severe abdominal pain or nausea/vomiting Severe chest pain, or chest pain that radiates (moves) to your jaw or arm Sudden, severe shortness of breath or difficulty breathing Thank you for allowing us to participate in your care. Pending Studies at Discharge: No Stand-Alone Forms: My [email or web address], Work/School Release, Smoking Cessation Medications and DC Order Prescriptions: New cyanocobalamin (vitamin B-12) 1,000 mcg capsule 1,000 mcg PO DAILY Qty: 60 1RF Rx Instructions: Please take one 1000 mcg B12 capsule per day. Continued fluticasone propion-salmeterol [Advair Diskus] 500-50 mcg/dose Blister With Device 1 inh INHALATION BID omeprazole 20 mg Tablet,Delayed Release (Dr/Ec) 20 mg PO DAILY cetirizine 10 mg Tablet 10 mg PO DAILY duloxetine [Cymbalta] 30 mg Capsule,Delayed Release(Dr/Ec) 30 mg PO DAILY multivitamin Tablet 1 tab PO DAILY buspirone 5 mg Tablet 5 mg PO BID PRN (Reason: Anxiety) potassium chloride 10 mEq Capsule, Extended Release 10 meq PO DAILY levetiracetam [Keppra] 500 mg Tablet 500 mg PO BID meloxicam 15 mg Tablet 15 mg PO UD PRN (Reason: NON SPECIFIED) trazodone 100 mg Tablet 100 mg PO HS albuterol sulfate 90 mcg/actuation Hfa Aerosol Inhaler 1 puff INHALATION Q6 PRN (Reason: Shortness Of Breath Or Wheezing) fluticasone propionate 50 mcg/actuation [place],Suspension 2 spray INTRANASAL DAILY Rx Instructions: administer into each nostril baclofen 15 mg Tablet 15 mg PO UD PRN (Reason: NON SPECIFIED) acetaminophen [Tylenol Extra Strength] 500 mg Tablet 1,000 mg PO BID PRN (Reason: DIRECTED) bisoprolol fumarate 5 mg Tablet 5 mg PO DAILY Discharge Orders: Discharge Order (Routine); Ordered 04/11/24 Ordered By: Everette Trejo Admission Data Admit Date/Time: 04/10/24 14:25 Attending Provider: David Fuentes Admit Provider: Everette Trejo Primary Care Provider: Deepak Cuenca Other Providers: Ruben Gray; Mark Moser; Kaleigh Govea; Ena Zhou; Echo Gongora; Jeremiah Meyers Other Interventions: Discharge Summary Assessment (RN) Last Done: 04/11/24 14:12 Supervising Physician Co-Signing Physician Notes I personally examined the patient and verified all reynoso points of history and exam, discussed case, and agree with decision making with Dr Trejo feeling better doing well enough to be able to go home outpt/home PT. discussed EtOH - admits to drinking due to depression. dicsussed other coping skills/etc vitals noted nad heent nc at mmm breathing unlabored no accessory muscles good effort no focal neuro deficits Ambulatory dysfunction/deconditioning - PT/OT consult, neurology evaluation and s/o - PT/OT improving - safe for home/home PT. Neurology does not find ulterior underlying cause of weakness/tremor. CM aware. Alcohol use disorder with concern for alcohol withdrawal - safe/stable for home. discussed management and tying together w depression Transaminitis with hyperbilirubinemia in the setting of AUD - RUQ US from 04/07 with hepatosteatosis - outpt f/u Hyponatremia - resolved Borderline low BP - resolved Else see resident documentation as noted. Resident Activity Tracking Resident Involvement: Resident Care Provided Care Provided: Adult Hospital Medicine
--- NOTE | 2024-04-11 19:09 | Billing Data ---
Date of Service April 11, 2024 Coding Level of Care Code 72733 IN/OBS DISCH 30 MIN/LESS
== END 2024-04-11 14:54 | disposition home health service (06) | DRG 897 ==
LOC: INTOOBSV 04-08 01:01 → SUATTDRO 04-08 01:01 → 2W 04-08 01:01 → SUATTDRO 04-10 14:25
DX: F10.139 Alcohol abuse with withdrawal, unspecified; E87.1 Hypo-osmolality and hyponatremia; J44.9 Chronic obstructive pulmonary disease, unspecified; E80.6 Other disorders of bilirubin metabolism; F17.210 Nicotine dependence, cigarettes, uncomplicated; Z79.899 Other long term (current) drug therapy; G40.909 Epilepsy, unspecified, not intractable, without status epilepticus; R42 Dizziness and giddiness; Z88.8 Allergy status to other drugs, medicaments and biological substances; Z79.51 Long term (current) use of inhaled steroids; D69.6 Thrombocytopenia, unspecified; G25.0 Essential tremor; Z91.81 History of falling; R26.81 Unsteadiness on feet; Z88.5 Allergy status to narcotic agent; I10 Essential (primary) hypertension; K70.10 Alcoholic hepatitis without ascites